=== PATIENT | female | born 1960 | race Caucasian/White ===

== ENCOUNTER 2021-11-01 06:08 | Day surgery (SDC) | payer OTHER, MEDICAID ==
[~2021-11-01] VITALS: Ht 167.6 cm; Wt 82.6 kg
[2021-11-01] MEDS ORDERED: MEPERIDINE 100 MG INJ. 100 MG/ML VIAL ONE (07:23)
[2021-11-01] MEDS ORDERED: SIMETHICONE 40 MG/0.6 ML ML ONE (07:23)
[2021-11-01] MEDS: MIDAZOLAM HCL 5 MG/5 ML VIAL ONE ×3 (08:42→08:48)
[2021-11-01] MEDS: fentaNYL CITRATE/PF 100 MCG/2 ML AMP ONE ×3 (08:42→08:48)
[2021-11-02 07:24] VITALS: BP_SYST 129
== END 2021-11-01 10:20 | disposition home or self-care (01) ==
LOC: SMU 06:08 → SDS 06:08
PROVIDERS: ATTEND Internal Medicine
DX: Z12.11 Encounter for screening for malignant neoplasm of colon (principal); D12.3 Benign neoplasm of transverse colon; K57.30 Diverticulosis of large intestine without perforation or abscess without bleeding; K64.8 Other hemorrhoids; Z20.822 Contact with and (suspected) exposure to COVID-19; Z79.899 Other long term (current) drug therapy
CPT/HCPCS: 36415 ×2; 45385; 87426; 88305; 99152; G0378; J2250; J3010; U0003; 45378; J2175